=== PATIENT | female | born 1960 | race Caucasian/White ===

== ENCOUNTER 2020-04-05 12:29 | Outpatient (CLI) | payer BC, SELFPAY ==
[2020-04-05 13:30] LABS: SARS-CoV-2 Ag Positive (Negative)
== END 2020-04-05 12:30 | disposition home or self-care (01) ==
PROVIDERS: PCP Internal Medicine; Visit Provider Internal Medicine
DX: U07.1 COVID-19 (principal)
CPT/HCPCS: 87426; C9803

== ENCOUNTER 2021-02-19 10:16 | Outpatient (CLI) | payer BC, SELFPAY ==
[2021-02-19 11:29] LABS: Influenza A QL RT-PCR Negative (Negative); Influenza B QL RT-PCR Negative (Negative); SARS-CoV-2 RNA PCR Negative (Negative)
== END 2021-02-19 10:17 | disposition home or self-care (01) ==
LOC: CHSLAB 10:18
PROVIDERS: PCP Internal Medicine; Visit Provider Internal Medicine
DX: J06.9 Acute upper respiratory infection, unspecified (principal)
CPT/HCPCS: 87502; C9803; U0003; U0005

== ENCOUNTER 2021-06-04 08:58 | Outpatient (CLI) | payer BC, SELFPAY ==
--- NOTE | ~2021-06-04 | CT_ITS ---
EXAMINATION: CT sinus wo con DATE: 06/04/2021 09:25 INDICATION: Sinusitis TECHNIQUE: Computed tomography (CT) of the paranasal sinuses was performed without intravenous contra st. The dose-length product was 240.42 mGy-cm. Automated exposure control and iterative reconstructio n technique were employed. COMPARISON: None FINDINGS: There is mucosal thickening of the maxillary, ethmoid, frontal and sphenoid sinuses. No sig nificant air-fluid levels. No nasal septal deviation. The ostiomeatal units are occluded by soft tiss ue. No significant mucoperiosteal reaction. There is a small extra-axial calcification in the right f rontal region measuring 6 mm, possibly a small meningioma. IMPRESSION: 1. Mild pansinusitis. Reviewed, dictated and finalized at location A. IMPRESSION: 1. Mild pansinusitis.
== END 2021-06-04 08:59 | disposition home or self-care (01) ==
LOC: CHSIMG 09:01
PROVIDERS: PCP Internal Medicine; Visit Provider Internal Medicine
DX: J32.9 Chronic sinusitis, unspecified (principal)
CPT/HCPCS: 70486

== ENCOUNTER 2022-01-31 16:04 | Outpatient (CLI) | payer OTHER, SELFPAY ==
--- NOTE | ~2022-01-31 | XR_ITS ---
XR_CERV2-3V_CR DATE: 01/31/2022 16:53 INDICATION: Neck pain, radiculopathy TECHNIQUE: AP, open-mouth, lateral, swimmer views COMPARISON: None FINDINGS: There is moderate levoscoliosis of the cervical and upper thoracic spine. C1 and C2 are normally aligned and the odontoid process is intact. There is slight anterolisthesis at C2-3 and C3-4 and greater (approximately 2.5 mm) anterolisthesis a t C4-5. Moderately severe degenerative disease at C5-6 and severe degenerative disease at C6-7. No fracture or dislocation or locked facet or prevertebral soft tissue swelling. IMPRESSION: Levoscoliosis and cervical spondylosis Reviewed, dictated and finalized at Location A. Reviewed, dictated and finalized at location B. URE FABRICATOR REPAIRER
== END 2022-01-31 16:05 | disposition home or self-care (01) ==
LOC: CHSIMG 16:06
PROVIDERS: PCP Internal Medicine; Visit Provider Internal Medicine
DX: M54.2 Cervicalgia (principal); M54.10 Radiculopathy, site unspecified
CPT/HCPCS: 72040

== ENCOUNTER 2022-01-31 16:53 | Outpatient (RCR) | payer OTHER, SELFPAY ==
--- NOTE | 2022-01-31 18:04 | PTOPEVAL1 ---
Assessment and note entered by JT File, PT Evaluation Information Assessment Status Evaluation Diagnosis L C4 radiculopathy Onset 01/29/22 Subjective Information patient reports no injury. she reports she woke up with a little bit of a stiff neck on 01/29/22. she reports since then it has gotten a lot worse. she reports she saw the MD today who gave her pain meds and had an xray taken. she reports since the injection she has been able to look to the L side and has been able to raise her L arm which she otherwise was not able to do the past 2 days. she reports she has pain from the L side of the neck down the side of the L arm. she reports the pain is constant and every so often she has a sharp shooting zingy pain down the side of the arm. she point to the lateral deltoid area of the L arm for pain radiation location. Reported Pain Level Pain Score 3: Self Report Assessment PT Clinical Summary mrs. taylor presents to skilled PT services for evaluation and treatment of L neck pain. she presents this date with signs and symptoms consistent with her referring diagnosis of L cervical radiculopathy. she presents with positive spurling compression and positive cervical decompression tests. she presents with no strength deficits, but radicular symptoms down the lateral L shoulder. she would do well to attend skilled PT to improve her objective/functional deficits, decrease pain, and return to prior level activities without limitations. Plan of Care Interventions Electrical Stimulation,Hot Pack/Cold Pack,Manual Therapy,Mechanical Traction,Patient/Caregiver Educati,Therapeutic Activities,Therapeutic Exercise PT Services Indicated Yes Treatment Frequency and 2x weekly for 6 visits Duration These treatments will address the objective and functional deficits as defined above. The patient will be advanced safely and appropriately in order for the patient to progress towards his/her prior level of function. Additional exercises will be introduced and as well as a comprehensive home exercise program upon discharge, if needed, ?to ensure carryover of functional gains achieved in the clinic. This treatment plan has been reviewed and agreement upon by the patient.
== END 2022-02-01 18:00 | disposition home or self-care (01) ==
LOC: CHSPT 16:53
PROVIDERS: PCP Internal Medicine; Visit Provider Internal Medicine
DX: M54.12 Radiculopathy, cervical region (principal)
CPT/HCPCS: 97012; 97014; 97110; 97161; G0283

== ENCOUNTER 2022-03-08 12:36 | Emergency (ER) | payer OTHER, SELFPAY ==
[2022-03-08] VITALS (13 sets, daily range): BP systolic 128–142; BP diastolic 51–101; PULSE 70–102; RESP 16–20; TEMP 36.6–36.9; O2SAT 93–97
[2022-03-08 13:13] LABS: Basophils Absolute Auto 0.03 K/mm3 (0.00-0.10); Basophils Percent Auto 0.3 % (0.0-1.0); Eosinophils Absolute Auto 0.01 K/mm3 (0.02-0.50); Eosinophils Percent Auto 0.1 % (1.0-6.0); Hematocrit 39.8 % (35.0-49.0); Hemoglobin 12.8 g/dL (12.0-15.0); Immature Granulocyte Absolute 0.06 K/mm3 (0.00-0.00); Immature Granulocyte Percent A 0.7 % (0.0-0.0); Lymphocytes Absolute Auto 1.52 K/mm3 (1.10-4.50); Lymphocytes Percent Auto 17.4 % (18.0-42.0); Mean Corpuscular HGB Conc 32.2 g/dL (32.0-36.0); Mean Corpuscular Hemoglobin 29.4 pg (27.0-31.0); Mean Corpuscular Volume 91.5 fL (78.0-102.0); Monocytes Percent Auto 6.9 % (2.0-11.0); Neutrophils Absolute Auto 6.5 K/mm3 (1.7-7.2); Neutrophils Percent Auto 74.6 % (50.0-70.0); Platelet Count Result 229 K/mm3 (150-420); Red Blood Count 4.35 M/mm3 (4.20-5.40); Red Cell Distribution Width 13.6 % (11.6-14.4); White Blood Count 8.8 K/mm3 (4.8-10.8)
--- NOTE | 2022-03-08 13:20 | ED.NAVMDI ---
HPI - Nausea/Vomiting/Diarrhea General Chief complaint: Nausea/Vomiting/Diarrhea Stated complaint: Vomiting,cough/diarrhea Time Seen by Provider: 03/08/22 12:49 Source: patient and RN notes reviewed Mode of arrival: ambulatory Limitations: no limitations History of Present Illness HPI Narrative: patient states that she has been having problems with a disc in her neck and also been having flu-like symptoms for the last 7 days. She went to see her primary care 4 days ago and she was diagnosed with influenza. It was too late for her to get Tamiflu. Her primary care physician gave her injections for her neck pain. Apparently gave her a shot of Kenalog. She continues to have body aches neck pain. Cough nausea vomiting diarrhea. She says that she just feels shaky all over. MD elicited complaint: nausea, vomiting and diarrhea Pertinent past history: other ( Positive for influenza A) Description of vomiting: bilious Description of diarrhea: watery Associated nausea: Yes Associated abdominal pain: No Exacerbating factors: eating Relieving factors: none Context: other ( positive for influenza A) Associated symptoms: myalgias, cough, weakness and anxiety Related Data Home Medications Medication Instructions Recorded Confirmed atorvastatin 40 mg tablet 40 mg PO DAILY 06/27/21 03/08/22 gabapentin 300 mg capsule 600 mg PO BID 06/27/21 03/08/22 hydrochlorothiazide 12.5 mg tablet 12.5 mg PO DAILY 06/27/21 03/08/22 losartan 100 mg tablet 100 mg PO DAILY 06/27/21 03/08/22 mecobalamin (vitamin B12) 1,000 1,000 mcg PO DAILY 06/27/21 03/08/22 mcg chewable tablet metformin 500 mg tablet 500 mg PO DAILY 06/27/21 03/08/22 omeprazole 20 mg capsule,delayed 20 mg PO BID 06/27/21 03/08/22 release Allergies Allergy/AdvReac Type Severity Reaction Status Date / Time Sulfa (Sulfonamide Allergy Unknown Hives Verified 08/29/21 09:40 Antibiotics) lisinopril AdvReac Itching Verified 03/08/22 13:14 Review of Systems Review of Systems: All systems reviewed & are unremarkable except as noted in HPI and below PMFSH Past Medical History Medical History Asthma Body mass index [BMI] 36.0-36.9, adult (02/16/18) Diabetes Dyslipidemia GERD (gastroesophageal reflux disease) Hypertension Surgical History Surgical History (Updated 03/08/22 @ 14:18 by Jayme Becker MD) History of knee replacement Family History Family History Mother Carcinoma of colon Family history of malignant neoplasm of breast Father Family history of malignant neoplasm of urinary bladder Other Diabetes mellitus Family history of malignant neoplasm Social History Social History Smoking status: Never smoker Alcohol intake: never Exam Const: General: no acute distress, alert and ill appearing acutely Nutritional Appearance: obese morbidly obese Orientation/consciousness: patient oriented x3 Limitations: no limitations HENMT: Head: normal to inspection Ears: external ears normal Face/Nose/Sinus: Normal external nose present Face and sinus: normal facial exam Mouth: Yes moist mucous membranes Eyes: Conjunctivae: conjunctivae normal Cornea: corneas normal Pupils: Equal, round and reactive pupils present EOM: EOMs intact bilaterally Neck: Neck: normal visual inspection Resp: Effort & Inspection: normal respiratory effort Auscultation: clear to auscultation bilaterally Cardio: Rate: regular rate Rhythm: regular rhythm GI: GI Palp: Yes Soft to palpation and No Tenderness to palpation present (GI) Auscultation: normal bowel sounds Back/Spine/Pelvis: Cervical Spine: cervical ROM normal Thoracic/Lumbar Spine: thoraco-lumbar ROM normal Skin: General skin exam: normal color Rashes: no rashes Wounds: no wounds Neuro: General: patient oriented x3, moves all extremities, no foca
[2022-03-08 13:28] LABS: Alanine Aminotransferase 27 U/L (14-59); Albumin Level 3.7 g/dL (3.4-5.0); Alkaline Phosphatase 114 U/L (46-116); Anion Gap 17 mmol/L (8-16); Aspartate Amino Transferase 19 U/L (15-37); Bilirubin,Total 0.9 mg/dL (0.00-1.00); Blood Urea Nitrogen 36 mg/dL (7-18); Calcium 9.6 mg/dL (8.5-10.1); Carbon Dioxide 20 mmol/L (21-32); Chloride 101 mmol/L (98-108); Estimated CRCL calculation 34 ml/min; Estimated Glomerular Filt Rate 29; Glucose 390 mg/dL (70-99); Magnesium 1.2 mg/dL (1.8-2.4); Osmolality Calculated 310 mOsm/kg (285-295); Potassium 4.3 mmol/L (3.5-5.1); Sodium 138 mmol/L (136-145); Total Protein 7.7 g/dL (6.4-8.2)
[2022-03-08] MEDS: SODIUM CHLORIDE 0.9% IV 1,000 ML 999 ML IV CONT (13:38)
[2022-03-08] MEDS: ONDANSETRON INJ 4 MG/2 ML VIAL IV PUSH (13:38)
[2022-03-08] MEDS: MAGNESIUM SULF 2 GM/WATER 50ML 2 GM/50 ML BAG IVPB (13:40)
[2022-03-08] MEDS: INSULIN HUMAN REGULAR (*BKC) 100 UNITS/ML 10 UNITS SUB-Q (14:26)
--- NOTE | 2022-03-08 14:30 | PC.NURSE ---
pt up in bedside chair since arrival. up to bathroom via wheelchair and urine taken to lab.
[2022-03-08 14:32] LABS: Add Urine Microscopic? YES; Appearance Urine Slightly Cloudy (Clear); Bilirubin Urine Negative (Negative); Blood Urine 1+ (Negative); Color Urine Yellow (Yellow); Glucose Urine UA 2+ (Negative); Ketones Urine 1+ (Negative); Leukocyte Esterase Ur Negative LEU/UL (Negative); Nitrate Urine Positive (Negative); Protein Urine Trace (Negative); Specific Grav Ur 1.025 (1.010-1.020); Urobilinogen Urine 0.2 mg/dL (0.2-1.0)
[2022-03-08 14:38] LABS: Squamous Epithelial Cell Urine Few /hpf (Few)
[2022-03-08 14:39] LABS: Bacteria Urine 1+ /hpf
[2022-03-08] MEDS: PROMETHAZINE HCL 25 MG/ML AMPUL IM (14:59)
[2022-03-08 15:29] LABS: Glucose Point of Care 313 mg/dl (65-105)
== END 2022-03-08 15:35 | disposition home or self-care (01) ==
PROVIDERS: Emergency Provider Emergency Medicine; PCP Internal Medicine
DX: E11.65 Type 2 diabetes mellitus with hyperglycemia (principal); N30.01 Acute cystitis with hematuria; E86.0 Dehydration; E83.42 Hypomagnesemia; E78.5 Hyperlipidemia, unspecified; J45.909 Unspecified asthma, uncomplicated; I10 Essential (primary) hypertension
CPT/HCPCS: 36415; 80053; 81001; 82948; 83735; 85025; 87077; 87086; 87088; 87186; 96365; 96372; 96375; 99284; J1815; J2405; J2550; J3475; J7030

== ENCOUNTER 2022-08-15 16:45 | Outpatient (CLI) | payer OTHER, SELFPAY ==
--- NOTE | ~2022-08-15 | XR_ITS ---
EXAMINATION: XR ribs LT 2V w CXR 2V DATE: 08/15/2022 17:11 INDICATION: Pain at the anterolateral left ribs TECHNIQUE: PA and lateral views of the chest and 3 views of the left ribs were obtained. COMPARISON: Chest radiograph dated 08/01/2016 FINDINGS: No rib fractures identified. Small calcified nodule at the lateral left midlung zone and calcified le ft hilar lymph nodes consistent with old granulomatous disease. No focal airspace opacities, pulmonar y edema, pleural effusion or pneumothorax. Cardiomegaly. Cholecystectomy clips in right upper quadran t. Mild lumbar dextroscoliosis. Moderate thoracic and lumbar spondylosis. IMPRESSION: 1. No rib fracture or acute cardiopulmonary disease. Reviewed, dictated and finalized at location A.
== END 2022-08-15 16:46 | disposition home or self-care (01) ==
LOC: CHSIMG 16:48
PROVIDERS: PCP Internal Medicine; Visit Provider Internal Medicine
DX: R07.89 Other chest pain (principal)
CPT/HCPCS: 71046; 71100

== ENCOUNTER 2022-08-27 11:52 | Outpatient (CLI) | payer OTHER, SELFPAY ==
--- NOTE | ~2022-08-27 | US_ITS ---
EXAMINATION: US soft tissue chest DATE: 08/27/2022 12:20 INDICATION: Left lateral chest wall swelling and pain. TECHNIQUE: Multiple grayscale and Doppler ultrasound images of the left posterior thorax were obtaine d. COMPARISON: CT abdomen and pelvis 07/26/2010 FINDINGS: In the left upper posterior thorax, there is a 6.8 x 2.1 cm subcutaneous mass with similar echogenicity and echotexture relative to subcutaneous fat. IMPRESSION: 1. 6.8 x 2.1 cm subcutaneous mass in left upper posterior thorax, most likely a lipoma. Reviewed, dictated and finalized at location A.
== END 2022-08-27 11:53 | disposition home or self-care (01) ==
LOC: CHSIMG 11:54
PROVIDERS: PCP Internal Medicine; Visit Provider Internal Medicine
DX: R07.89 Other chest pain (principal); R22.2 Localized swelling, mass and lump, trunk
CPT/HCPCS: 76604

== ENCOUNTER 2023-06-12 09:55 | Outpatient (CLI) | payer MEDICARE, SELFPAY ==
--- NOTE | ~2023-06-12 | XR_ITS ---
XR chest 2V 06/12/2023 10:33 Indication: Cough and wheezing Procedure: 2 view chest Comparison: Comparison to multiple prior studies sequentially, with oldest reviewed study dated 09/06. Findings: Heart size normal. Calcified granuloma left mid thorax. There is right middle lobe airspace disease. No significant effusion. No pneumothorax. No edema. No acute osseous abnormality. Impression: 1: Right middle lobe airspace disease, compatible with pneumonia. Reviewed, dictated and finalized at location L. Impression: 1: Right middle lobe airspace disease, compatible with pneumonia.
[2023-06-12 10:28] LABS: Basophils Percent Auto 0.7 % (0.0-1.0); Eosinophils Percent Auto 1.5 % (1.0-6.0); Hematocrit 37.5 % (35.0-42.0); Hemoglobin 12.1 g/dL (11.7-13.8); Immature Granulocyte Absolute 0.16 K/mm3 (0.00-0.00); Immature Granulocyte Percent A 1.2 % (0.0-0.0); Lymphocytes Absolute Auto 2.74 K/mm3 (1.10-4.50); Lymphocytes Percent Auto 20.5 % (18.0-42.0); Mean Corpuscular HGB Conc 32.3 g/dL (32-36); Mean Corpuscular Hemoglobin 30.3 pg (27.0-31.0); Mean Platelet Volume 9.7 fl (9.2-11.8); Monocytes Absolute Auto 1.09 K/mm3 (0.10-0.90); Monocytes Percent Auto 8.2 % (2.0-11.0); Neutrophils Absolute Auto 9.08 K/mm3 (1.70-7.20); Neutrophils Percent Auto 67.9 % (50.0-70.0); Platelet Count Result 326 K/mm3 (150-420); Red Blood Count 3.99 M/mm3 (4.20-5.40); Red Cell Distribution Width 13.2 % (11.6-14.4); White Blood Count 13.4 K/mm3 (4.8-10.8)
== END 2023-06-12 09:56 | disposition home or self-care (01) ==
LOC: CHSLAB 10:02
PROVIDERS: PCP Internal Medicine; Visit Provider Internal Medicine
DX: R05.9 Cough, unspecified (principal); R06.2 Wheezing; R91.8 Other nonspecific abnormal finding of lung field
CPT/HCPCS: 36415; 71046; 85025

== ENCOUNTER 2024-03-18 17:10 | Outpatient (CLI) | payer MEDICARE, SELFPAY ==
[2024-03-18 17:22] LABS: Basophils Absolute Auto 0.09 K/mm3 (0.00-0.10); Basophils Percent Auto 0.8 % (0.0-1.0); Eosinophils Absolute Auto 0.29 K/mm3 (0.02-0.50); Eosinophils Percent Auto 2.7 % (1.0-6.0); Hematocrit 37.8 % (35.0-42.0); Hemoglobin 12.2 g/dL (11.7-13.8); Immature Granulocyte Absolute 0.05 K/mm3 (0.00-0.00); Immature Granulocyte Percent A 0.5 % (0.0-0.0); Lymphocytes Absolute Auto 2.18 K/mm3 (1.10-4.50); Lymphocytes Percent Auto 19.9 % (18.0-42.0); Mean Corpuscular HGB Conc 32.3 g/dL (32-36); Mean Corpuscular Hemoglobin 30.3 pg (27.0-31.0); Mean Platelet Volume 10.3 fl (9.2-11.8); Monocytes Percent Auto 8.2 % (2.0-11.0); Neutrophils Absolute Auto 7.42 K/mm3 (1.70-7.20); Neutrophils Percent Auto 67.9 % (50.0-70.0); Platelet Count Result 270 K/mm3 (150-420); Red Blood Count 4.02 M/mm3 (4.20-5.40); Red Cell Distribution Width 12.5 % (11.6-14.4); White Blood Count 10.9 K/mm3 (4.8-10.8)
[2024-03-18 17:48] LABS: Alanine Aminotransferase 25 U/L (14-59); Albumin Level 3.1 g/dL (3.4-5.0); Alkaline Phosphatase 103 U/L (46-116); Anion Gap 9 mmol/L (4-12); Aspartate Amino Transferase 14 U/L (15-37); Bilirubin,Total 0.6 mg/dL (0.00-1.00); Blood Urea Nitrogen 20 mg/dL (7-18); Carbon Dioxide 29 mmol/L (21-32); Chloride 105 mmol/L (98-108); Estimated Glomerular Filt Rate 41; Glucose 157 mg/dL (70-99); Magnesium 1.5 mg/dL (1.8-2.4); Osmolality Calculated 301 mOsm/kg (285-295); Potassium 3.8 mmol/L (3.5-5.1); Sodium 143 mmol/L (136-145); Total Protein 6.3 g/dL (6.4-8.2)
== END 2024-03-18 17:11 | disposition home or self-care (01) ==
LOC: CHSLAB 17:13
PROVIDERS: PCP Internal Medicine; Visit Provider Internal Medicine
DX: I10 Essential (primary) hypertension (principal); N18.2 Chronic kidney disease, stage 2 (mild)
CPT/HCPCS: 36415; 80053; 83735; 85025

== ENCOUNTER 2024-03-29 10:55 | Outpatient (CLI) | payer MEDICARE, SELFPAY ==
[2024-03-29 11:40] LABS: Anion Gap 11 mmol/L (4-12); Blood Urea Nitrogen 32 mg/dL (7-18); Calcium 9.8 mg/dL (8.5-10.1); Carbon Dioxide 27 mmol/L (21-32); Chloride 103 mmol/L (98-108); Estimated Glomerular Filt Rate 30; Glucose 147 mg/dL (70-99); Osmolality Calculated 301 mOsm/kg (285-295); Potassium 4.5 mmol/L (3.5-5.1); Sodium 141 mmol/L (136-145)
== END 2024-03-29 10:56 | disposition home or self-care (01) ==
LOC: CHSLAB 10:57
PROVIDERS: PCP Internal Medicine; Visit Provider Internal Medicine
DX: E86.0 Dehydration (principal)
CPT/HCPCS: 36415; 80048

== ENCOUNTER 2024-09-27 14:11 | Outpatient (CLI) | payer MEDICARE, SELFPAY ==
--- NOTE | ~2024-09-27 | US_ITS ---
Renal-Bladder ultrasound Clinical History: Chronic kidney disease Technique: Real-time sonographic imaging of the kidneys and urinary bladder was performed. Findings: The right kidney measures 10.6 cm in length and the left kidney measures 9.8 cm. There is n o hydronephrosis. 1 cm nonobstructing right renal stone present. Renal cortical echogenicity is withi n normal limits. No renal mass lesion is identified. The urinary bladder is moderately distended at the time of this exam. No intraluminal echoes are iden tified. No abnormal wall thickening is seen. Impression: 1 cm nonobstructing right renal stone. Reviewed, dictated and finalized at location M. Impression: 1 cm nonobstructing right renal stone.
--- OUTSIDE RECORDS SUMMARY | 2024-09-27 14:21 | XMS_ITS | Clinical Summary ---
Author Organization [facility] Address [address] [place] [address] Care Team Providers Care Telecommunications Project Manager Name Role Phone Faith Perdomo MD Primary Care Provider [phone] Allergies Active Allergy Reactions Criticality Noted Date Comments Sulfa Antibiotics Rash Low 03/10/2024 Rash as a child Medications omeprazole (PRILOSEC) 20 MG capsule Take 1 capsule (20 mg total) by mouth nightly at bedtime. Active metFORMIN (GLUCOPHAGE) 500 MG tablet Take 4 tablets (2,000 mg total) by mouth daily. Patient not currently taking Active gabapentin (NEURONTIN) 300 MG capsule Take 2 capsules (600 mg total) by mouth 2 (two) times daily. Active ferrous sulfate, 65 mg elemental, 325 (65 FE) MG tablet Take 1 tablet (325 mg total) by mouth nightly at bedtime. Active amLODIPine (NORVASC) 5 MG tablet Take 2 tablets (10 mg total) by mouth daily. Active atorvastatin (LIPITOR) 20 MG tablet Take 1 tablet (20 mg total) by mouth nightly at bedtime. Active MAGNESIUM OXIDE 400 OR Take 1,200 mg by mouth daily. Active tiZANidine (ZANAFLEX) 2 MG tablet Take 1 tablet (2 mg total) by mouth every 8 (eight) hours as needed (Neck Pain). Active tirzepatide (MOUNJARO) 15 MG/0.5ML injectionIndica tions:Diabetes Mellitus Inject 15 mg into the skin once a week. Indications: Diabetes Pt takes weekly on Thursdays. On hold for surgery. Active hyoscyamine (LEVSIN) 0.125 MG tablet Take 1 tablet (0.125 mg total) by mouth every 4 (four) hours as needed for Cramping. 15 tablet 5 Active solifenacin (VESICARE) 5 MG tablet Take 1 tablet (5 mg total) by mouth daily. 7 tablet 5 Active Active Problems Problem Noted Date Diagnosed Date Kidney stone 03/11/2024 Family History Medical History Relation Comments Cancer Father Cancer Mother Kidney Disease Mother Relation Status Comments Father Alive Mother Social History Tobacco Use Types Packs/Day Years Used Date Smoking Tobacco: Never Smokeless Tobacco: Never Tobacco Cessation:Counseling Given: Not Answered Alcohol Use Standard Drinks/Week Comments Not Currently 0 (1 standard drink = 0.6 oz pur e alcohol) Comments No Sex and Gender Information Value Date Recorded Sex Assigned at Female 05/18/2024 8:34 AM REAGENT TENDER HELPER Legal Sex Female 9:08 PM REAGENT TENDER HELPER Gender Identity Not on file Sexual Orientation Not on file Last Filed Vital Signs Vital Sign Reading Time Taken Comments Blood Pressure 137/60 04/06/2024 4:30 PM REAGENT TENDER HELPER Pulse 72 04/06/2024 4:30 PM REAGENT TENDER HELPER Temperature 36.1 C (97 F) 04/06/2024 3:22 PM REAGENT TENDER HELPER Respiratory Rate 18 04/06/2024 4:15 PM REAGENT TENDER HELPER Oxygen Saturation 95% 04/06/2024 4:30 PM REAGENT TENDER HELPER Inhaled Oxygen Concentration - - Weight 88.5 kg (195 lb) 04/01/2024 4:30 PM REAGENT TENDER HELPER Height 160 cm (5' 2.99) 04/06/2024 11:58 AM REAGENT TENDER HELPER Body Mass Index 34.55 04/01/2024 4:30 PM REAGENT TENDER HELPER Plan of Treatment Health Maintenance Due Date Last Done Comments Colorectal Cancer Screening Colonoscopy (10 Years) 1958 Hepatitis C 01/14/1976 Mammogram Screening 1998 Zoster Vaccines (2 of 2) 07/19/2018 05/24/2018 Annual Medicare Wellness Visit 2023 Dexa Scan (General) 2023 COVID-19 Vaccine (3 - season) 2023 03/23/2021, 07/26/2020 DTaP, Tdap and Td Vaccines (3 - Td or Tdap) 09/26/2030 09/26/2020, 10/24/2010 Pneumococcal Vaccine: 50+ Years Completed 12/29/2023, 08/09/2015, 09/30/2013, Additional history exists RSV Immunization or 60+ Years Completed 12/29/2023 Meningococcal B Vaccine Aged Out No l onger eligible based on patient's age to complete this topic Meningococcal Vaccine Aged Out No akira radu eligible based on patient's age to complete this topic RSV Immunizations Under 20 Months Aged Out No longer eligible based on patient's age to complete this topic Medical Devices Implanted Type Area Geriatric Social Worker Device Identifier Shelf Expiration Date Model / Serial / Lot Stent Polaris Ureteral [place] [employer] 6fr X 26cm - [id number] Implanted:Qty: 1 on 03/11/2024 by Esperanza Ruffin MD at [facility] Stent [employer] [id number] 12/02/2026 [id number] 30 / / [id number] Stent Ureteral [place] [employer] Contour 6fr X 24cm - [id number] Implanted:Qty: 1 on 04/06/2024 by Jordy Celis MD at [facility] Stent Left: Ureter [employer] 12/14/2026 [id number] 20 / / [id number] Insurance Advance Directives * Full Code (Latest Code Status on File) Date Activated Date Inactivated Comments 03/11/2024 6:45 AM 03/12/2024 1:17 PM Care Teams Telecommunications Project Manager Relationship Specialty Start Date End Date Faith Perdomo MD [address] [place] [address] PCP - General INTERNAL MEDICINE 03/10/24
--- OUTSIDE RECORDS SUMMARY | 2024-09-27 14:21 | XMS_ITS | Encounter Summary ---
Author Organization [facility] Address [facility] [place] [address] Care Team Providers Care Wood Scrap Handler Name Role Phone Faith Perdomo MD Primary Care Provider [phone] Encounter Details Date Type Department Care Team (Late st Contact Info) Description 08/22/2018 Abstract SFL CONVERSION [address] [place] [address] , Generic Conversion, Social History Tobacco Use Types Packs/Day Years Used Date Smoking Tobacco: Never Assessed Comments Unknown Sex and Gender Information Value Date Recorded Sex Assigned at Female 05/18/2024 8:34 AM WEBBING TACKER Legal Sex Female 9:08 PM WEBBING TACKER Gender Identity Not on file Sexual Orientation Not on file documented as of this encounter Plan of Treatment Not on file documented as of this encounter Visit Diagnoses Not on filedocumented in this encounter Care Teams Wood Scrap Handler Relationship Specialty Start Date End Date Faith Perdomo MD [address] [place] [address] PCP - General INTERNAL MEDICINE 03/10/24 documented as of this encounter
--- OUTSIDE RECORDS SUMMARY | 2024-09-27 14:21 | XMS_ITS | Clinical Summary ---
Author Organization [facility] Address [address] [facility] [place] [address] Care Team Providers Care Career Representative Name Role Phone Faith Perdomo MD Primary Care Provider [phone] Jabier Lynn MD Unavailable [phone] Source Comments [facility],non-owned Affiliates and Associated Physician Practices is amultiple site organization consisting of ambulatory clinics and hospital sitesin [place], [place], [place] and [place]. This disclosure is being madepursuant to the Care Everywhere program and may not contain all information available regarding this patient. Last updated 17.[facility] Allergies Active Allergy Reactions Criticality Noted Date Comments Sulfa Drugs Skin Reactions Medium 12/22/2017 Rash Medications * Be aware that medications may not be up to date on this document. Alwaysverify current medications with the patient. glimepiride (AMARYL) 4 MG tablet Take 4 mg by mouth 2 times daily 0 11/13/2017 Active metFORMIN (GLUCOPHAGE) 500 MG tablet TAKE 2 TABLETS BY MOUTH TWICE A DAY 0 11/15/2017 Active gabapentin (NEURONTIN) 300 MG capsule TAKE 2 CAPSULES BY MOUTH 4 TIMES A DAY 1 11/13/2017 Active losartan (COZAAR) 50 MG tablet Take 50 mg by mouth once daily 0 11/13/2017 Active omeprazole (PRILOSEC) 20 MG capsule TAKE 1 CAPSULE(S) BY MOUTH TWICE DAILY 1 11/13/2017 Active pravastatin (PRAVACHOL) 20 MG tablet Take 20 mg by mouth at bedtime 0 11/05/2017 Active SITagliptin (JANUVIA) 100 MG tablet Take 100 mg by mouth once daily Active cyanocobalamin (VITAMIN B-12) 1000 MCG tablet Take 1,000 mcg by mouth once daily Active nabumetone (RELAFEN) 750 MG tablet Take 1 tablet by mouth 2 times daily 180 tablet 3 04/21/2018 Active nabumetone (RELAFEN) 750 MG tablet TAKE 1 TABLET BY MOUTH TWICE A DAY 180 tablet 1 01/25/2019 Active Active Problems Problem Noted Date Diagnosed Date Presence of right artificial knee joint 12/23/19 18 Trochanteric bursitis of right hip 12/22/2017 Pes anserine bursitis 12/22/2017 Social History Tobacco Use Types Packs/Day Years Used Date Smoking Tobacco: Never Smokeless Tobacco: Never Comments Unknown Sex and Gender Information Value Date Recorded Sex Assigned at Not on file Legal Sex Female 10:46 AM CDT Gender Identity Not on file Sexual Orientation Not on file Last Filed Vital Signs Vital Sign Reading Time Taken Comments Blood Pressure - - Pulse - - Temperature - - Respiratory Rate - - Oxygen Saturation - - Inhaled Oxygen Concentration - - Weight 108.9 kg (240 lb) 12/22/2017 2:57 PM CDT Height 167.6 cm (5' 6) 12/22/2017 2:57 PM CDT Body Mass Index 38.74 12/22/2017 2:57 PM CDT Plan of Treatment Health Maintenance Due Date Last Done Comments BONE DENSITY TESTING 1960 COLOGUARD (AGES 45-75) - COL ON CA SCREENING 1958 COLON MONITORING 1958 COLONOSCOPY - COLON CA SCREENING 1958 CT COLONOGRAPHY - COLON CA SCREENING 1960 Colorectal Cancer Screening 1958 FIT - COLON CA SCREENING 1958 FLEX SIG - COLON CA SCREENING 1958 MAMMOGRAM 1958 HEPATITIS C SCREENING 01/09/1976 DTAP/TDAP/TD VACCINES (1 - Tdap) 1977 PNEUMOCOCCAL VACCINE 50+ (1 of 1 - PCV) 01/14/2008 ZOSTER VACCINE (1 of 2) 01/14/2008 SCREENING FOR DIABETES 12/22/2017 COVID-19 VACCINE (1 - 2023-2 5 season) 2023 DEPRESSION SCREENING 03/17/2024 INFLUENZA VACCINE (#1) 2024 Respiratory Syncytial Virus (RSV) Vaccine Pt: or over 60 yrs (1 - 1-dose 75+ series) 2033 HEPATITIS B VACCINE Aged Out No longe r eligible based on patient's age to complete this topic HIB VACCINE Aged Out No longer eligi ble based on patient's age to complete this topic HPV VACCINE Aged Out No longer eligi ble based on patient's age to complete this topic MENINGOCOCCAL (Group B) VACC INE SHARED DECISION-MAKING Aged Out No longer eligibl e based on patient's age to complete this topic MENINGOCOCCAL GROUPS A/C/Y/W VACCINE Aged Out No longer eligible b ased on patient's age to complete this topic Insurance Care Teams Career Representative Relationship Specialty Start Date End Date Faith Perdomo MD PCP - General Internal Medicine 12/22/17 [place] [address] [place] [address] Orthopedic Surgery 12/22/17
== END 2024-09-27 14:12 | disposition home or self-care (01) ==
LOC: CHSIMG 14:12
PROVIDERS: PCP Internal Medicine; Visit Provider Internal Medicine
DX: N18.32 Chronic kidney disease, stage 3b (principal); N20.0 Calculus of kidney
CPT/HCPCS: 76775

== ENCOUNTER 2024-12-03 11:10 | Outpatient (CLI) | payer MEDICARE, SELFPAY ==
--- OUTSIDE RECORDS SUMMARY | 2024-12-03 11:14 | XMS_ITS | Clinical Summary ---
Author Organization [facility] Address [address] [place] [address] Care Team Providers Care Material Chaser Name Role Phone Faith Perdomo MD Primary Care Provider [phone] Allergies Active Allergy Reactions Criticality Noted Date [...] Sex Assigned at Female 05/18/2024 8:34 AM DRYER FEEDER Legal Sex Female 9:08 PM DRYER FEEDER Gender Identity Not on file Sexual Orientation Not on file Last Filed Vital Signs Vital Sign Reading Time Taken Comments Blood Pressure 137/60 04/06/2024 4:30 PM DRYER FEEDER Pulse 72 04/06/2024 4:30 PM DRYER FEEDER Temperature 36.1 C (97 F) 04/06/2024 3:22 PM DRYER FEEDER Respiratory Rate 18 04/06/2024 4:15 PM DRYER FEEDER Oxygen Saturation 95% 04/06/2024 4:30 PM DRYER FEEDER Inhaled Oxygen Concentration - - Weight 88.5 kg (195 lb) 04/01/2024 4:30 PM DRYER FEEDER Height 160 cm (5' 2.99) 04/06/2024 11:58 AM DRYER FEEDER Body Mass Index 34.55 04/01/2024 4:30 PM DRYER FEEDER Plan of Treatment Health Maintenance Due Date Last Done Comments Colorectal Cancer Screening Colonoscopy (10 Years) 1958 Hepatitis C 01/14/1976 Mammogram Screening 1998 Zoster Vaccines (2 of 2) 07/19/2018 05/24/2018 Annual Medicare Wellness Visit 2023 Dexa Scan (General) 2023 COVID-19 Vaccine (3 - season) 2024 03/23/2021, 07/26/2020 DTaP, Tdap and Td Vaccines [...] this topic Medical Devices Implanted Type Area Electrical Maintenance Supervisor Device Identifier Shelf Expiration Date Model / Serial / Lot Stent Polaris Ureteral [place] [employer] 6fr X 26cm - [id number] Implanted:Qty: 1 on 03/11/2024 by Esperanza Ruffin MD at [facility] Stent [employer] [id number] 12/02/2026 [id number] 30 / / [id number] Stent Ureteral [place] [employer] Contour 6fr X 24cm - [id number] Implanted:Qty: 1 on 04/06/2024 by Jordy Celis MD at [facility] Stent Left: Ureter [employer] 12/14/2026 [id number] 20 / / [id number] Insurance Advance Directives * Full Code (Latest Code Status on File) Date Activated Date Inactivated Comments 03/11/2024 6:45 AM 03/12/2024 1:17 PM Care Teams Material Chaser Relationship Specialty Start Date End Date Faith Perdomo MD [address] [place] [address] PCP - General INTERNAL MEDICINE 03/10/24
--- OUTSIDE RECORDS SUMMARY | 2024-12-03 11:14 | XMS_ITS | Clinical Summary ---
Author Organization [facility] Address [address] [place] [address] Care Team Providers Care Denture Technician Name Role Phone Faith Perdomo MD Primary Care Provider [phone] Jabier Lynn MD Unavailable [phone] Source Comments [facility],non-owned Affiliates and Associated Physician Practices is amultiple site organization consisting of ambulatory clinics and hospital sitesin [place], [place] and [place]. This disclosure is being madepursuant to the Care Everywhere program and may not contain all information available regarding this patient. Last updated 17.[facility] Allergies Active Allergy Reactions Criticality Noted Date [...] of 2) 01/14/2008 SCREENING FOR DIABETES 12/22/2017 DEPRESSION SCREENING 03/17/2024 COVID-19 VACCINE (1 - 2023-2 5 season) 2024 INFLUENZA VACCINE (#1) 2024 Respiratory Syncytial Virus [...] to complete this topic Insurance Care Teams Denture Technician Relationship Specialty Start Date End Date Faith Perdomo MD PCP - General Internal Medicine 12/22/17 [place] [id number] [place] [address] Orthopedic Surgery 12/22/17
--- OUTSIDE RECORDS SUMMARY | 2024-12-03 11:14 | XMS_ITS | Encounter Summary ---
Author Organization [facility] Address [facility] [place] [address] Care Team Providers Care Cream Hauler Name Role Phone Faith Perdomo MD Primary Care Provider Encounter Details Date Type Department Care Team (Late st Contact Info) Description 08/22/2018 Abstract [facility] CONVERSION [address] [place] [address] , Generic Conversion, Social History Tobacco Use Types Packs/Day Years Used Date Smoking Tobacco: Never Assessed Comments Unknown Sex and Gender Information Value Date Recorded Sex Assigned at Female 05/18/2024 8:34 AM ENGLISH H[employer]ER Legal Sex Female 9:08 PM [employer]ER Gender Identity Not on file Sexual Orientation Not on file documented as of this encounter Plan of Treatment Not on file documented as of this encounter Visit Diagnoses Not on filedocumented in this encounter Care Teams Cream Hauler Relationship Specialty Start Date End Date Faith Perdomo MD [address] [place] [address] PCP - General INTERNAL MEDICINE 03/10/24 documented as of this encounter
== END 2024-12-03 11:11 | disposition home or self-care (01) ==
LOC: CHSLAB 11:13
PROVIDERS: PCP Internal Medicine; Visit Provider Nurse Practitioner Family
DX: R30.0 Dysuria (principal)
CPT/HCPCS: 87086